=== PATIENT | female | born 1930 | race Caucasian/White ===

== ENCOUNTER → 2016-10-04 | Outpatient (REF) | LOC: SKLAB4 07:56 | PROVIDERS: ATTEND Family Medicine | DX: Z51.81 Encounter for therapeutic drug level monitoring (principal) ==

== ENCOUNTER → 2016-10-07 | Outpatient (REF) | payer MEDICARE | LOC: SKLAB4 11:09 | PROVIDERS: ATTEND Family Medicine | DX: Z51.81 Encounter for therapeutic drug level monitoring (principal); Z79.899 Other long term (current) drug therapy ==

== ENCOUNTER → 2016-10-08 | Outpatient (REF) ==
[2016-10-08 09:03] LABS: MEAN CORPUSCULAR HEMOGLOBIN 26.9 pg (27.0-33.0); MEAN CORPUSCULAR HGB CONC 30.7 g/dl (32.0-36.5); MEAN CORPUSCULAR VOLUME 87.5 fl (80.0-96.0); RED CELL DISTRIBUTION WIDTH 16.2 % (11.5-14.5); WHITE BLOOD COUNT 8.2 K/mm3 (4.0-10.0)
[2016-10-08 09:29] LABS: ANION GAP 5 MEQ/L (8-16); BLOOD UREA NITROGEN 13 MG/DL (7-18); CALCIUM LEVEL 8.7 MG/DL (8.8-10.2); CARBON DIOXIDE LEVEL 30 MEQ/L (21-32); CHLORIDE LEVEL 108 MEQ/L (98-107); CREATININE FOR GFR 0.72 MG/DL (0.55-1.02); GLOMERULAR FILTRATION RATE > 60.0 (>32); GLUCOSE, FASTING 83 MG/DL (83-110); POTASSIUM SERUM 4.5 MEQ/L (3.5-5.1); SODIUM LEVEL 143 MEQ/L (136-145)
== END ==
LOC: SKLAB4 10:47
PROVIDERS: ATTEND Family Medicine
DX: I10 Essential (primary) hypertension (principal)

== ENCOUNTER → 2016-10-10 | Outpatient (REF) | LOC: SKLAB4 11:48 | PROVIDERS: ATTEND Family Medicine | DX: Z79.899 Other long term (current) drug therapy (principal) ==

== ENCOUNTER → 2016-10-13 | Outpatient (REF) | payer MEDICARE | LOC: SKLAB4 10:19 | PROVIDERS: ATTEND Family Medicine | DX: Z51.81 Encounter for therapeutic drug level monitoring (principal) ==

== ENCOUNTER → 2016-10-15 | Outpatient (REF) ==
[2016-10-15 09:45] LABS: MEAN CORPUSCULAR HEMOGLOBIN 27.2 pg (27.0-33.0); MEAN CORPUSCULAR HGB CONC 31.6 g/dl (32.0-36.5); MEAN CORPUSCULAR VOLUME 86.1 fl (80.0-96.0); RED CELL DISTRIBUTION WIDTH 15.6 % (11.5-14.5); WHITE BLOOD COUNT 7.9 K/mm3 (4.0-10.0)
[2016-10-15 10:05] LABS: ANION GAP 10 MEQ/L (8-16); BLOOD UREA NITROGEN 15 MG/DL (7-18); CALCIUM LEVEL 8.7 MG/DL (8.8-10.2); CARBON DIOXIDE LEVEL 27 MEQ/L (21-32); CHLORIDE LEVEL 106 MEQ/L (98-107); CREATININE FOR GFR 0.92 MG/DL (0.55-1.02); GLOMERULAR FILTRATION RATE > 60.0 (>32); GLUCOSE, FASTING 100 MG/DL (83-110); POTASSIUM SERUM 4.2 MEQ/L (3.5-5.1); SODIUM LEVEL 143 MEQ/L (136-145)
== END ==
LOC: SKLAB4 09:58
PROVIDERS: ATTEND Family Medicine
DX: D64.9 Anemia, unspecified (principal)

== ENCOUNTER → 2016-10-16 | Outpatient (REF) | LOC: SKLAB4 11:25 | PROVIDERS: ATTEND Family Medicine | DX: Z79.899 Other long term (current) drug therapy (principal) ==

== ENCOUNTER → 2016-10-16 | Outpatient (CLI) | payer MEDICARE ==
--- NOTE | 2016-10-16 16:11 | REP ---
BILATERAL MAMMOGRAM WITH DIAGNOSTIC MAMMOGRAM OF LEFT BREAST AND LEFT BREAST ULTRASOUND: Bilateral mammography performed in the MLO and CC projections. Comparison made with multiple prior exams, the most recent of which is 11/10/2010. There is a history of left breast swelling and redness. Mammography shows diffuse skin thickening of the left breast. There is ill-defined increased density throughout the left breast. No discrete mass or architectural distortion is seen and there are no suspicious clusters of microcalcifications. Real-time sonographic evaluation of the left breast performed in the region of swelling and redness. There is diffuse soft tissue edema without a discrete cystic or solid nodule. No fluid collection is seen. Incidental note is made of a left pleural effusion. IMPRESSION: ACR 3 probably benign. Diffuse skin thickening and increased density throughout the left breast without a discrete mass or architectural distortion. There appears to be edematous change on the ultrasound without a fluid collection or mass identified. The findings most likely represent mastitis. However, I cannot completely exclude inflammatory carcinoma of the breast. Clinical correlation is necessary. Recommend followup mammography within 6 months to ensure resolution of these findings. Surgical consultation may be performed to evaluate for inflammatory carcinoma. BI-RADS/ACR category 3 mammogram. Probably benign findings. Initial short-term followup (usually 6 month) examination. This mammogram was interpreted with the aid of an FDA-approved computer-aided detection system. The patient states she/he had a clinical breast exam in 10/2016. The patient letter being requested is M3. Signed by Otf Renteria MD 10/16/2016 04:25 P
== END ==
LOC: M RAD 12:22
PROVIDERS: ATTEND Family Medicine
DX: N63 Unspecified lump in breast (principal); N64.59 Other signs and symptoms in breast
CPT/HCPCS: 76642; G0204

== ENCOUNTER → 2016-10-18 | Outpatient (REF) | payer MEDICARE ==
--- NOTE | 2016-10-18 19:15 | REP ---
PORTABLE CHEST: AP portable view of the chest is performed and compared to prior study 09/26/2012 as well as other prior exams. There is cardiomegaly and vascular congestion. There appears to be mild diffuse interstitial edema. There are bibasilar infiltrates. There is calcification of the thoracic aorta. A right arm PICC line is seen. IMPRESSION: Cardiomegaly with vascular congestion. There appears to be interstitial edema and bibasilar infiltrates. Findings likely represent CHF and pulmonary edema. Underlying pneumonia is not excluded. Signed by Otf Renteria MD 10/19/2016 03:21 P
== END ==
LOC: SKLAB4 17:20
PROVIDERS: ATTEND Family Medicine
DX: R06.02 Shortness of breath (principal); R91.8 Other nonspecific abnormal finding of lung field; I51.7 Cardiomegaly

== ENCOUNTER → 2016-10-19 | Outpatient (REF) ==
[2016-10-19 14:12] LABS: GLUCOSE, FASTING 82 MG/DL (83-110)
[2016-10-19 14:13] LABS: ANION GAP 8 MEQ/L (8-16); BLOOD UREA NITROGEN 16 MG/DL (7-18); CALCIUM LEVEL 8.5 MG/DL (8.8-10.2); CARBON DIOXIDE LEVEL 29 MEQ/L (21-32); CHLORIDE LEVEL 102 MEQ/L (98-107); CREATININE FOR GFR 0.78 MG/DL (0.55-1.02); GLOMERULAR FILTRATION RATE > 60.0 (>32); POTASSIUM SERUM 3.8 MEQ/L (3.5-5.1); SODIUM LEVEL 139 MEQ/L (136-145)
== END ==
LOC: SKLAB4 14:05
PROVIDERS: ATTEND Family Medicine
DX: Z79.899 Other long term (current) drug therapy (principal)

== ENCOUNTER → 2016-10-22 | Outpatient (REF) ==
[2016-10-22 10:40] LABS: MEAN CORPUSCULAR HEMOGLOBIN 26.2 pg (27.0-33.0); MEAN CORPUSCULAR HGB CONC 30.5 g/dl (32.0-36.5); MEAN CORPUSCULAR VOLUME 86.1 fl (80.0-96.0); RED CELL DISTRIBUTION WIDTH 15.5 % (11.5-14.5); WHITE BLOOD COUNT 9.8 K/mm3 (4.0-10.0)
[2016-10-22 11:14] LABS: ANION GAP 8 MEQ/L (8-16); BLOOD UREA NITROGEN 17 MG/DL (7-18); CALCIUM LEVEL 7.8 MG/DL (8.8-10.2); CARBON DIOXIDE LEVEL 29 MEQ/L (21-32); CHLORIDE LEVEL 106 MEQ/L (98-107); CREATININE FOR GFR 0.92 MG/DL (0.55-1.02); GLOMERULAR FILTRATION RATE > 60.0 (>32); GLUCOSE, FASTING 129 MG/DL (83-110); POTASSIUM SERUM 3.7 MEQ/L (3.5-5.1); SODIUM LEVEL 143 MEQ/L (136-145)
== END ==
LOC: SKLAB4 10:38
PROVIDERS: ATTEND Family Medicine
DX: D64.9 Anemia, unspecified (principal); I10 Essential (primary) hypertension; I73.9 Peripheral vascular disease, unspecified

== ENCOUNTER → 2016-10-25 | Outpatient (REF) | LOC: SKLAB4 12:21 | PROVIDERS: ATTEND Family Medicine | DX: Z51.81 Encounter for therapeutic drug level monitoring (principal); Z53.9 Procedure and treatment not carried out, unspecified reason ==

== ENCOUNTER → 2016-10-26 | Outpatient (REF) | LOC: SKLAB4 09:58 | PROVIDERS: ATTEND Family Medicine | DX: Z51.81 Encounter for therapeutic drug level monitoring (principal); Z79.899 Other long term (current) drug therapy ==

== ENCOUNTER → 2016-10-29 | Outpatient (CLI) | payer MEDICARE ==
--- NOTE | 2016-10-29 19:52 | ECHO ---
DATE OF PROCEDURE: 10/29/2016 REFERRING PHYSICIAN: Ortega Crespo. Study was performed on outpatient basis on 10/29/2016. INDICATION: Congestive heart failure. HEIGHT: 155 cm WEIGHT: 52 kg. DIMENSIONS: IVS: 1.1 LV: 2.4 LVPW: 1.1 LA: 3.8 Aorta: 3.3 FINDINGS: The study is of good technical quality. Left ventricle is of relatively normal small size and normal contractility with estimated ejection fraction (EF) around 65-70%. There is a D shaped interventricular septum and both systole and diastole consistent with severe pulmonary hypertension and right ventricle wall overload. Right ventricle is severely dilated and globally hypokinetic. Both atria are severely enlarged. Aortic valve is tricuspid. It is sclerotic but has overall preserved mobility. There are degenerative abnormalities of mitral valve with prominent mitral annular calcifications and some restriction of leaflet mobility. Tricuspid valve appears normal. Pulmonic valve also appears normal. Mild to moderate pericardial effusion without signs of cardiac compressions are noted. Left pleural effusion is noted. Inferior vena cava is markedly dilated and has no appreciable collapse with respiration indicative of very high central venous pressure. Doppler interrogation reveals no aortic stenosis and approximately moderate aortic insufficiency. There is mild mitral insufficiency and mild mitral stenosis (peak gradient across mitral valve is 12 mmHg and mean gradient 4 mmHg). At least moderate and more likely severe tricuspid insufficiency seen. Calculated pulmonary artery pressure is at a minimum of mid 80s corresponding to severe pulmonary hypertension. Pulmonic valve exhibits mild insufficiency. Mitral inflow pattern and tissue Doppler imaging of mitral annulus reveal grade 1 diastolic dysfunction. CONCLUSIONS: 1. Study is of good technical quality. 2. Relatively small left ventricle (LV) size with normal LV systolic function and grade 1 diastolic dysfunction. 3. Severely dilated and globally hypokinetic right ventricle. 4. Severe biatrial enlargement. 5. Mild mitral stenosis. 6. Moderate aortic insufficiency. 7. Severe tricuspid insufficiency. 8. High central venous pressure. 9. Severe pulmonary hypertension. 10. Mild to moderate size noncompressive pericardial effusion. COMMENT: Subacute bacterial endocarditis (SBE) prophylaxis is not recommended. The presence of pericardial effusion is typically of poor prognosis in setting of severe pulmonary hypertension.
== END ==
LOC: M CARPUL 08:24
PROVIDERS: ATTEND Family Medicine
DX: I50.9 Heart failure, unspecified (principal)

== ENCOUNTER → 2016-10-29 | Outpatient (REF) ==
[2016-10-29 09:04] LABS: MEAN CORPUSCULAR HEMOGLOBIN 27.4 pg (27.0-33.0); MEAN CORPUSCULAR HGB CONC 31.7 g/dl (32.0-36.5); MEAN CORPUSCULAR VOLUME 86.5 fl (80.0-96.0); RED CELL DISTRIBUTION WIDTH 15.2 % (11.5-14.5); WHITE BLOOD COUNT 10.1 K/mm3 (4.0-10.0)
[2016-10-29 09:31] LABS: CREATININE FOR GFR 0.96 MG/DL (0.55-1.02); GLOMERULAR FILTRATION RATE 58.5 (>32)
== END ==
LOC: SKLAB4 09:57
PROVIDERS: ATTEND Family Medicine
DX: D64.9 Anemia, unspecified (principal); Z51.81 Encounter for therapeutic drug level monitoring

== ENCOUNTER → 2016-11-01 | Outpatient (REF) | LOC: SKLAB4 09:22 | PROVIDERS: ATTEND Family Medicine | DX: Z51.81 Encounter for therapeutic drug level monitoring (principal) ==

== ENCOUNTER → 2016-11-02 | Outpatient (REF) ==
--- NOTE | 2016-11-03 08:04 | ECGEPIP ---
Stationary ECG Study [facility] Test Date: 2016-11-02 Pat Name: LELO KONG Department: Room: - Gender: F [employer] Operator: CARO : [id number] Requested By: Ortega Crespo Order Number: [id number] Reading MD: Dipak Ware Measurements Intervals [place] Rate: 78 P: 77 VT: 148 QRS: 117 QRSD: 85 T: -52 QT: 379 QTc: 433 Interpretive Statements Normal sinus rhythm Diffusely low QRS voltage Incomplete right bundle branch block Nonspecific T wave abnormality Compared to prior tracing of 09/26/2012, there has been further drop in QRS voltage Electronically Signed On 11-03-2016 8:03:49 EDT by Dipak Ware
== END ==
LOC: SKLAB4 09:43
PROVIDERS: ATTEND Family Medicine
DX: I50.9 Heart failure, unspecified (principal)

== ENCOUNTER → 2016-11-05 | Outpatient (REF) ==
[2016-11-05 09:40] LABS: CALCIUM LEVEL 8.4 MG/DL (8.8-10.2); CREATININE FOR GFR 1.65 MG/DL (0.55-1.02); GLOMERULAR FILTRATION RATE 31.3 (>32); POTASSIUM SERUM 4.8 MEQ/L (3.5-5.1)
== END ==
LOC: SKLAB4 09:26
PROVIDERS: ATTEND Family Medicine
DX: L03.116 Cellulitis of left lower limb (principal)

== ENCOUNTER → 2016-11-12 | Outpatient (REF) | LOC: SKLAB4 11:04 | PROVIDERS: ATTEND Family Medicine | DX: L03.116 Cellulitis of left lower limb (principal); Z53.9 Procedure and treatment not carried out, unspecified reason ==